=== PATIENT | female | born 1970 | race African-American/Black ===

== ENCOUNTER 2024-01-17 14:47 | Emergency (ER) | payer OTHER | END 2024-01-17 16:21 | disposition home or self-care (01) | LOC: CSHERS 14:47 | DX: Z00.00 Encounter for general adult medical examination without abnormal findings (principal); Z55.0 Illiteracy and low-level literacy; F17.210 Nicotine dependence, cigarettes, uncomplicated | CPT/HCPCS: 71046 ==